=== PATIENT | female | born 1985 | race Caucasian/White ===

== ENCOUNTER 2019-07-21 17:44 | Emergency (ER) | payer OTHER ==
[2019-07-21] MEDS ORDERED: Cephalexin 500 MG Cap ONE (18:00)
--- NOTE | 2019-07-21 18:02 | EDM.PDOC ---
ED HPI GENERAL MEDICAL PROBLEM - General Chief Complaint: General Stated Complaint: TATTOO RASH Time Seen by Provider: 07/21/19 17:45 Source of Information: Reports: Patient History Limitations: Reports: No Limitations - History of Present Illness INITIAL COMMENTS - FREE TEXT/NARRATIVE: According to patient she had a tattoo done on her left thigh 2 days ago. She noticed some swelling and pain in the tattoo yesterday. Also she claims she has been feeling chills on and off today. Also the redness and swelling around the tattoo has increased in size today. No lethargy, no loss of appetite. No nausea or vomiting. No other complaints. Onset: Gradual Onset Date: 07/19/19 Location: Reports: Lower Extremity, Left Quality: Reports: Ache Severity: Moderate Improves with: Reports: None Worsens with: Reports: None Associated Symptoms: Reports: Fever/Chills, Rash. Denies: Confusion, Chest Pain , Cough, Diaphoresis, Headaches, Nausea/Vomiting, Seizure, Shortness of Breath, Syncope, Weakness Left Upper Thigh Pain Score (Numeric/FACES): 4 - Related Data Allergies Allergy/AdvReac Type Severity Reaction Status Date / Time clindamycin Allergy Itching Verified 07/21/19 17:57 Latex, Natural Rubber Allergy Swollen Verified 07/21/19 17:57 Eyes ED ROS GENERAL - Review of Systems Review Of Systems: See Below Constitutional: Reports: Chills. Denies: Fever HEENT: Denies: Rhinitis, Throat Pain Respiratory: Denies: Shortness of Breath, Pleuritic Chest Pain, Cough, Sputum Cardiovascular: Denies: Chest Pain, Lightheadedness Endocrine: Denies: Fatigue GI/Abdominal: Denies: Abdominal Pain, Nausea, Vomiting : Denies: Dysuria, Frequency Skin: Reports: Rash. Denies: Bruising, Pruritis ED EXAM, GENERAL - Physical Exam Exam: See Below Exam Limited By: No Limitations General Appearance: Alert, WD/WN, No Apparent Distress Eye Exam: Bilateral Eye: EOMI, PERRL Ears: Normal External Exam, Normal Canal, Hearing Grossly Normal, Normal TMs Ear Exam: Bilateral Ear: Auricle Normal, Canal Normal, TM normal Nose: Normal Inspection, Normal Mucosa, No Blood Throat/Mouth: Normal Inspection, Normal Lips, Normal Teeth, Normal Gums, Normal Oropharynx, Normal Voice, No Airway Compromise Head: Atraumatic, Normocephalic Neck: Normal Inspection, Supple, Non-Tender, Full Range of Motion Respiratory/Chest: No Respiratory Distress, Lungs Clear, Normal Breath Sounds, No Accessory Muscle Use, Chest Non-Tender Cardiovascular: Normal Peripheral Pulses, Regular Rate, Rhythm, No Edema, No Gallop, No JVD, No Murmur, No Rub Extremities: Normal Range of Motion, No Pedal Edema, Normal Capillary Refill Skin Exam: Warm, Other (left thigh: there is a large tatto over the upper anterior aspect of the thigh. ther is approximately 10cm by 8cm of rasied skin eruythema aroudn the tattoo. THe swelling is warm and tender to touch. Tattoo is wraped sincere thin polytene cover.) Course - Vital Signs Text/Narrative:: Pt reassured that she has developed cellulitis of the thigh around the tattoo. There is definite skin infection. the polytene wrap was removed. thin film of antibiotic ointment applied on the skin. Advised daily antibiotic ointment on the rash. Also her white count is elevated. I have started her on Keflex 500mg 4 times daily for 10 days. Motrin 800mg 3 times daily for pain as needed. redness should gradually improve. Followup in clinic if not better next week. Last Recorded V/S: Last Vital Signs Temp 98.5 F 07/21/19 17:44 Pulse 76 07/21/19 17:44 Resp 18 07/21/19 17:44 BP 143/79 H 07/21/19 17:44 Pulse Ox 100 07/21/19 17:44 Departure - Departure Time of Disposition: 18:30 Disposition: Home, Self-Care 01 Condition: Fair Clinical Impression: Cellulitis of thigh - Discharge Information *PRESCRIPTION DRUG MONITORING PROGRAM REVIEWED*: Not Applicable *COPY OF PRESCRIPTION DRUG MONITORING REPORT IN PATIENT SENTHIL: Not Applicable Additional Instructions: Pt reassured that she has developed cellulitis of the thigh around the tattoo. There is definite skin infection. the polytene wrap was removed. thin film of antibiotic ointment applied on the skin. Advised daily antibiotic ointment on the rash. Also her white count is elevated at 11.4 I have started her on Keflex 500mg 4 times daily for 10 days. Motrin 800mg 3 times daily for pain as needed. redness should gradually improve. Followup in clinic if not better next week. - Problem List & Annotations (1) Cellulitis of thigh SNOMED Code(s): 07442126 Code(s): L03.119 - CELLULITIS OF UNSPECIFIED PART OF LIMB Status: Acute Current Visit: Yes - Problem List Review Problem List Initiated/Reviewed/Updated: Yes - Assessment/Plan Assessment:: Left thigh cellulitis Plan: Pt reassured that she has developed cellulitis of the thigh around the tattoo. There is definite skin infection. the polytene wrap was removed. thin film of antibiotic ointment applied on the skin. Advised daily antibiotic ointment on the rash. Also her white count is elevated. I have started her on Keflex 500mg 4 times daily for 10 days. Motrin 800mg 3 times daily for pain as needed. redness should gradually improve. Followup in clinic if not better next week.
== END 2019-07-21 18:21 | disposition home or self-care (01) ==
LOC: LB.ED 17:44
DX: L03.116 Cellulitis of left lower limb (principal); Z88.1 Allergy status to other antibiotic agents; Z91.040 Latex allergy status
CPT/HCPCS: 36415; 85025; 99283; A9270